=== PATIENT | female | born 1990 | race Caucasian/White ===

== ENCOUNTER → 2018-02-16 10:24 | Outpatient (CLI) | payer BC ==
[~2018-02-16 10:24] MED LIST: PRENATAL COMPLE1 TAB PO; VISTARIL50 MG PO
[2018-03-02 21:09] VITALS: BMI 38.2
== END | disposition home or self-care (01) ==
LOC: D.LDO 10:24
DX: O26.899 Other specified pregnancy related conditions, unspecified trimester (principal); Z3A.00 Weeks of gestation of pregnancy not specified; L29.9 Pruritus, unspecified

== ENCOUNTER → 2018-02-19 09:43 | Outpatient (CLI) | payer BC ==
[2018-03-02 21:09] VITALS: BMI 38.2
== END | disposition home or self-care (01) ==
LOC: D.LDO 09:43
DX: O36.8130 Decreased fetal movements, third trimester, not applicable or unspecified (principal); Z3A.35 35 weeks gestation of pregnancy

== ENCOUNTER 2018-03-02 20:04 | Inpatient (IN) | payer BC ==
[~2018-03-02] VITALS: Ht 162.6 cm; Wt 100.7 kg
--- NOTE | ~2018-03-02 | OP ---
PATIENT NAME: JEN RUCKER MEDICAL RECORD: [id number] :89 LOCATION:[id number] ADMISSION DATE:03/02/18 SURGEON: RAHEEM CROWDER MD DATE OF OPERATION: 03/03/2018 PREDELIVERY DIAGNOSES: 1. Chorioamnionitis. 2. Spontaneous labor at term with spontaneous rupture at 1 cm. 3. Nonreassuring tracing. POSTDELIVERY DIAGNOSES: 1. Chorioamnionitis, delivered. 2. Mother delivered at term. 3. Nonreassuring tracing. PROCEDURE: Vacuum-assisted vaginal delivery. ATTENDING: Raheem Crowder MD ANESTHETIC: Continuous lumbar epidural. FINDINGS: Viable female infant, OP presentation with Apgars of 8 and 9. Second-degree laceration with repair. INDICATION FOR VACUUM: The patient developed temperature during her first stage of labor. Deep variable decelerations had occurred and she had received amnio-infusions. OP presentation was encountered at delivery. Indication for the vacuum was nonreassuring tracing with terminal bradycardic event. Vacuum was applied and the patient delivered over 1 expulsive effort. EBL: 350 cc. DISPOSITION: Mother and recovered in the room. TRANSINT:[id number] Voice Confirmation ID: [id number] DOCUMENT ID: [id number] RAHEEM CROWDER MD at 1728 CC: [id number] DICTATION DATE: 03/03/18 1256 CORE INSPECTOR: 03/03/18 1353 DIS IN 03/05/18 [address] [place] [address]
--- NOTE | ~2018-03-02 | DS ---
PATIENT:JEN RUCKER :89 MEDICAL RECORD: [id number] DISCHARGE SUMMARY ADMISSION DATE: 03/02/18 DISCHARGE DATE: 03/05/18 DATE OF ADMISSION: 03/02/2018. DATE OF DISCHARGE: 03/05/2018. ADMISSION DIAGNOSIS: at term. DISCHARGE DIAGNOSIS: Mother delivered at term. PROCEDURE: Vaginal delivery. ATTENDING: Raheem Montiel MD HISTORY OF PRESENT ILLNESS: See the H&P in the chart. SUMMARY OF HOSPITALIZATION: The patient was admitted to the hospital and was delivered without incident. The patient did well and at the time of discharge, tolerating regular diet and voiding without difficulty. The patient has been instructed to follow up in 6 weeks. Contraception counseling has been performed. The patient will use condoms until the contraception is further discussed at the visit. TRANSINT:[id number] Voice Confirmation ID: [id number] DOCUMENT ID: [id number] RAHEEM MONTIEL MD at 0805 CC: [id number] DICTATION DATE: 03/31/18 0907 SEMICONDUCTOR ASSEMBLER: 03/31/18 1316 DIS IN 03/05/18 [facility] [address] [place] [address]
[2018-03-02 20:30] LABS: APPEARANCE CLEAR (CLEAR); BACTERIA FEW /hpf (NONE SEEN); BILIRUBIN NEGATIVE (NEGATIVE); COLOR YELLOW (YELLOW); EPITHELIAL CELLS 0-5 /hpf (0-5); GLUCOSE NEGATIVE (NEGATIVE); KETONE NEGATIVE (NEGATIVE); NITRITE NEGATIVE (NEGATIVE); PROTEIN NEGATIVE (NEGATIVE); RED CELLS - URINE 0-5 /hpf (0-5); UROBILINOGEN NORMAL (NORMAL); WHITE CELLS - URINE OCC /hpf (0-5)
[2018-03-02] MEDS ORDERED: VISTARIL50 MG PO (21:07)
[2018-03-02] MEDS ORDERED: PRENATAL COMPLE1 TAB PO (21:08)
[2018-03-02 21:09] VITALS: BP 137/64; Ht 162.6 cm; Wt 100.7 kg
[2018-03-02 22:53] LABS: HEMATOCRIT 31.4 % (36.0-48.0); MCH 26.8 pg (26.0-34.0); MCHC 31.8 g/dL (31.0-37.0); MCV 84.2 fL (80.0-100.0); MEAN PLATELET VOLUME 10.4 fL (7.4-10.4); RBC 3.73 10x6/uL (4.00-5.40); WBC 4.7 10x3/uL (4.8-10.8)
[2018-03-03 19:30] VITALS: BP 127/75
[2018-03-04 07:02] LABS: BASOPHILS 0.2 % (0-2); EOSINOPHILS 0 % (0-7); HEMATOCRIT 30.3 % (36.0-48.0); HEMOGLOBIN 9.3 g/dL (12-16); IMMATURE GRANULOCYTES 0.3 % (0-5); LYMPHOCYTES 9.6 % (15-50); MCH 26.3 pg (26.0-34.0); MCHC 30.7 g/dL (31.0-37.0); MCV 85.8 fL (80.0-100.0); MEAN PLATELET VOLUME 9.9 fL (7.4-10.4); MONOCYTES 6.9 % (2-11); PLATELET COUNT 130 10x3/uL (130-400); RBC 3.53 10x6/uL (4.00-5.40); RDW 18.9 % (11.5-14.5)
[2018-03-04 07:03] LABS: WBC 5.9 10x3/uL (4.8-10.8)
[2018-03-04 07:27] LABS: RAPID PLASMA REAGIN Non Reactive (Non Reactive)
[2018-03-04 08:49] VITALS: BP 127/62
[2018-03-04 15:04] VITALS: BP 117/70
[2018-03-04 19:20] VITALS: BP 128/83
[2018-03-05 07:45] VITALS: BP 124/85
== END 2018-03-05 12:45 | disposition home or self-care (01) | DRG 775 ==
LOC: D.LDO 20:04 → D.LD 20:04 → D.LDO 20:10 → D.LD 03-03 16:30
PROVIDERS: Obstetrics & Gynecology
PROC: 10D07Z6 Extraction of Products of Conception, Vacuum, Via Natural or Artificial Opening (ICD-10-PCS; principal; 2018-03-03)
PROC: 0KQM0ZZ Repair Perineum Muscle, Open Approach (ICD-10-PCS; 2018-03-03)
DX: O41.1230 Chorioamnionitis, third trimester, not applicable or unspecified (principal); Z37.0 Single live birth; O76 Abnormality in fetal heart rate and rhythm complicating labor and delivery; Z3A.37 37 weeks gestation of pregnancy; O70.1 Second degree perineal laceration during delivery

== ENCOUNTER → 2019-04-17 02:46 | Outpatient (CLI) | payer BC ==
[2018-03-02 21:09] VITALS: BMI 38.2
[~2019-04-17 02:46] MED LIST changes: +FERROUS SULFAT325 MG PO
[2019-04-17 03:54] LABS: APPEARANCE CLEAR (CLEAR); BILIRUBIN NEGATIVE (NEGATIVE); COLOR YELLOW (YELLOW); GLUCOSE NEGATIVE (NEGATIVE); KETONE NEGATIVE (NEGATIVE); NITRITE NEGATIVE (NEGATIVE); PROTEIN NEGATIVE (NEGATIVE); SPECIFIC GRAVITY 1.015 (1.005-1.020); UROBILINOGEN NORMAL (NORMAL)
== END | disposition home or self-care (01) ==
LOC: D.LDO 02:46
PROVIDERS: ATTEND Obstetrics & Gynecology
DX: O26.899 Other specified pregnancy related conditions, unspecified trimester (principal); Z3A.00 Weeks of gestation of pregnancy not specified

== ENCOUNTER 2019-05-15 20:20 | Inpatient (IN) | payer BC ==
[~2019-05-15] VITALS: Ht 162.6 cm; Wt 100.0 kg
[2019-05-15 21:00] LABS: HEMATOCRIT 30.4 % (36.0-48.0); HEMOGLOBIN 9.5 g/dL (12-16); MCH 25.9 pg (26.0-34.0); MCHC 31.3 g/dL (31.0-37.0); MCV 82.8 fL (80.0-100.0); MEAN PLATELET VOLUME 11.2 fL (7.4-10.4); RBC 3.67 10x6/uL (4.00-5.40); RDW 16.9 % (11.5-14.5); WBC 6.8 10x3/uL (4.8-10.8)
[2019-05-15 21:05] LABS: APPEARANCE CLEAR (CLEAR); BILIRUBIN NEGATIVE (NEGATIVE); COLOR YELLOW (YELLOW); GLUCOSE NEGATIVE (NEGATIVE); KETONE NEGATIVE (NEGATIVE); NITRITE NEGATIVE (NEGATIVE); PROTEIN TRACE mg/dL (NEGATIVE); UROBILINOGEN NORMAL (NORMAL)
[2019-05-15 21:06] VITALS: BP 133/73; Ht 162.6 cm; Wt 100.0 kg
[2019-05-15 21:06] LABS: BACTERIA FEW /hpf (NONE SEEN); EPITHELIAL CELLS 0-5 /hpf (0-5); MUCUS <1+ /lpf (NONE SEEN); RED CELLS - URINE 0-5 /hpf (0-5); WHITE CELLS - URINE 0-5 /hpf (0-5)
--- NOTE | 2019-05-16 12:47 | MORECARE ---
CASE MANAGEMENT DISCHARGE SUMMARY PATIENT: JEN RUCKER UNIT: [id number] ADM DATE: 05/15/19 AGE: 29 : [birth year] SEX: F ROOM/BED: D.1277 AUTHOR: LIZABETH DAUGHERTY PHYSICIAN: REFERRING PHYSICIAN: RAHEEM MONTIEL MD DATE OF SERVICE: 05/16/19 Discharge Plan Patient Name: JEN RUCKER Facility: [facility]:[place] : 1990 Planned Disposition: Anticipated Discharge Date: Discharge Date: Expected LOS: Initial Reviewer: [email or web address] Initial Review Date: 05/15/2019 Generated: 05/16/19 1:47 pm Patient Name: JEN RUCKER Page [id number] at 1247 All edits/amendments must be made on the electronic document DICTATION DATE: 05/16/19 1247 REAMING MACHINE OPERATOR: RAJENDRA 05/16/19 1247 RPT#: [id number] DC DATE: STATUS: ADM IN [facility] [address] [place] [address] END OF REPORT
[2019-05-16 19:32] VITALS: BP 114/70
--- NOTE | 2019-05-16 19:32 | NUR ---
PT SITTING UP IN BED HOLDING , PLACED IN OPEN CRIB AT BEDSIDE AT THIS TIME SO SHIFT ASSESEMENT CAN BE COMPLETED. VS WNL, BREATH SOUNDS CLEAR BILATERALLY. FUNDUS FIRM,MIDLINE AT THE U, BLEEDING SMALL WITH NO CLOTS PERIPAD IN PLACE. SALINE LOCK TO LEFT WRIST REMAINS IN PLACE WITH CLEAR TEGADERM. PT RATES HER PAIN 1/10. DENIES NEEDS AT THIS TIME. BED REMAINS LOCKED IN LOW POSITION, SIDE RAILS UPX2, CALL RUVALCABA AND TRAY TABLE IN REACH. WILL CONTINUE TO MONITOR.
--- NOTE | 2019-05-16 20:10 | NUR ---
PATIENT PROVIDED WITH TOWELS,RAGS AND SOAP FOR A SHOWER. TOWEL PLACED ON FLOOR TO AVOID FALLS AND CLEAN GOWN PROVIDED.
--- NOTE | 2019-05-16 20:16 | NUR ---
INFANT TO NURSERY VIA OPEN CRIB PER MIRANDA DELGADO
--- NOTE | 2019-05-16 21:30 | NUR ---
PT SLEEPING ON HER LEFT SIDE, RESPIRATIONS EVEN AND NON LABORED, REMAINS IN OPEN CRIB AT BEDSIDE. BED REMAINS LOCKED IN LOW POSITION, SIDE RAILS UPX2, CALL RUVALCABA AND TRAY TABLE IN REACH. WILL CONTINUE TO MONITOR.
--- NOTE | 2019-05-16 22:38 | NUR ---
TYLENNOL 1000MG ADMINISTERED PO PER MD ORDERS AND PT REQUEST FOR ABDOMINAL CRAMPING. PT IS SITTING UP IN BED EATING POPEYES, PLASTIC UTENSILS PROVIDED PER PT REQUEST, NO FURTHER NEEDS IDENTIFIED. WILL CONTINUE TO MONITOR
--- NOTE | 2019-05-17 00:34 | NUR ---
TORADOL 10MG ADMINISTERED PO AT THIS TIME PER MD ORDERS AND PT REQUEST. PANTIES PROVIDED, NO FURTHER NEEDS IDENTIFIED. WILL CONTINUE TO MONITOR
[2019-05-17 00:36] VITALS: BP 129/72
--- NOTE | 2019-05-17 01:30 | NUR ---
PT RESTING QUIETLY WITH EVEN RESPIRATIONS. NO DISTRESS NOTED, WILL CONTINUE TO MONITOR.
--- NOTE | 2019-05-17 03:10 | NUR ---
REPORT RECEIVED KEVIN FERRARO RN. PT IN BED RESTING WITH EYES CLOSED. NO DISTRESS NOTED
--- NOTE | 2019-05-17 03:30 | NUR ---
PATIENT REPORT TO MIRANDA CASTELLANO TO ASSUME PATIENT CARE.
[2019-05-17 04:26] VITALS: BP 128/74
--- NOTE | 2019-05-17 04:28 | NUR ---
UP IN ROOM GOING TO RESTROOM. DENIES ANY NEEDS, AT THIS TIME.
--- NOTE | 2019-05-17 05:11 | NUR ---
RESTING IN BED WITH EYES CLOSED. NO DISTRESS NOTED. CL IN REACH. SR UP X2. WILL MONITOR
--- NOTE | 2019-05-17 06:00 | NUR ---
SITTING UP IN BED. WATCHING TV. CL IN REACH. SL UP X2. DENIES NEEDS
[2019-05-17 06:09] LABS: RAPID PLASMA REAGIN Non Reactive (Non Reactive)
--- NOTE | 2019-05-17 07:00 | NUR ---
RECEIVED REPORT FROM PM NURSE KAILYN JEAN. MOM DID WELL OVER NIGHT. NO PROBLEMS TO REPORT.
--- NOTE | 2019-05-17 07:30 | NUR ---
PATIENT LYINIG IN BED AWAKE. SHIFT ASSESSMENT AND VS DONE CHARTED NO C/O PAIN AT THIS TIME.
[2019-05-17 07:40] VITALS: BP 119/58
--- NOTE | 2019-05-17 09:03 | NUR ---
Ariane Alfaro 05/17/19 S: Patient states she nursed infant after delivery and last night. She has been given formula also because her milk hasn't came in yet. She did breastfeed her other child, positive experience. States she would like help with making sure latch is correct. Verbally agrees she understands what a correct latch looks like. Denies pain or discomfort with . Verbally agrees to call or text CLC as needed with help with . O: Patient sitting up in bed. CLC walked in room with nursery nurse and infant. Congratulated on delivery and asked how can I help you with . Explained breastmilk composition and supply and demand. Encouraged patient to latch infant for every feeding if possible this will help with establishing your milk supply. only needed one teaspoon of colostrum for her first feeding. Your colostrum will increase by volume for every feeding to adjust to needs. Explained normal feeding patterns for a breastfed infant. Some infant may want to nurse every 2-3 hours. Some may want to nurse more often. This is normal. Placing infant skin to skin can help with led . How long infant remains latch can vary per feeding but it's normal for to be latched 15-20 or more. Explained feeding cues, positions, how to verify is latched correctly, and encouraged to ask for help as needed with . Observed infant feeding cues, showed patient, and explained how to hold for laid back . was placed on the left breast at 8:55-9:18. Infant had round checks, mouth 140 degrees, sucking in a rocking motion, observed and could hear swallowing, and both mother and infant appear content with feeding. Showed patient how to verify latch is correct. Asked if any questions or concerns? Provided work cell number [phone], please call or text as needed for help with . Made client a [facility] appointment. Please ask for help as needed for nursery staff with . A:CLC assisted patient with latching . P:Continue to promote during hospital visit.
--- NOTE | 2019-05-17 10:30 | NUR ---
PATIENT LYING IN BED. C/O PAIN IN PERINEAL AREA. BLEEDING HAS SLOWED AND NO CLOTS NOTED. PAIN MEDICATION GIVEN CHARTED.
--- NOTE | 2019-05-17 12:30 | NUR ---
ROOM CHECK. PATIENT LYING IN BED. NO C/O PAIN. TOLD MOM THAT SHE AND WOULD BE DISCHARGING THIS AFTERNOON LONG 'S 24 HRS BILI CAME BACK WNL. PT DENIES ANY CONCERNS OR NEEDS AT THIS TIME.
--- NOTE | 2019-05-17 14:30 | NUR ---
PATIENT LYING IN BED WITH UP IN ARMS. DENIES PAIN. TOLD HER AT LAB RESULT WERE GOOD AND THAT I WOULD BE DISCHARGING HER AND INFANT SOON PAPER WORK WAS COMPLETED. MOM WITH NO NEEDS OR CONCERNS AT THIS TIME.
--- NOTE | 2019-05-17 15:00 | NUR ---
THIS RN TO BEDSIDE FOR DISCHARGE TEACHING TO INCLUDE VAGINAL DELIVERY PERICARE, OB EMERGENCIES, PP DEPRESSION AND PAIN CONTROL W/EITHER TYLENOL OR IBUPROFEN. PT VEBALIZES UNDERSTANDING AND DENIES QUESTIONS AT THIS TIME. PT GIVEN HER PP FOLLOW UP DATE AND TIME. PT REPORTS SHE HAS IT WRITTEN DOWN ALREADY AT HOME. NO PRESCRIPTIONS PROVIDED FOR PT. DISCHARGE PAPERS PROVIDED. NO SIGNATURE OBTAINED. PT DISCHARGED HOME.
--- NOTE | 2019-05-17 15:10 | NUR ---
PT DISCHARGED HOME IN STABLE CONDITION. TRANSPORTED OFF UNIT VIA W/C TO BE DRIVEN HOME WITH BY FAMILY.
== END 2019-05-17 15:10 | disposition home or self-care (01) | DRG 807 ==
LOC: D.LD 20:20
PROVIDERS: ADMIT Obstetrics & Gynecology; ATTEND Obstetrics & Gynecology
PROC: 10E0XZZ Delivery of Products of Conception, External Approach (ICD-10-PCS; principal; 2019-05-16)
PROC: 0HQ9XZZ Repair Perineum Skin, External Approach (ICD-10-PCS; 2019-05-16)
DX: O66.0 Obstructed labor due to shoulder dystocia (principal); Z37.0 Single live birth; Z3A.39 39 weeks gestation of pregnancy; O70.0 First degree perineal laceration during delivery